=== PATIENT | male | born 1960 | race Asian ===

== ENCOUNTER → 2017-05-02 | Outpatient (CLI) | payer OTHER ==
--- NOTE | 2017-05-02 18:54 | Diagnostic Imaging Report ---
Exams: Head and maxilla facial CTs without IV contrast History: Trauma, fall Comparison studies: None Technique: Axial images were obtained to the vertex and maxillofacial region. Coronal and sagittal images reconstructed from the axial data. Intravenous contrast: None Findings: Scalp: No abnormalities. Bones: No fractures, blastic or lytic lesions. Brain sulci: Mildly prominent. Ventricles: Normal in size and configuration. No hydrocephalus. Parenchyma: No mass, acute hemorrhage or acute or chronic cortical vascular insults. Sellar/suprasellar region: No abnormalities Craniocervical junction: Patent foramen magnum. No Chiari one malformation. Maxillofacial CT: Soft tissues: Right reason traumatic soft tissue hematoma. Bones: No fractures or bony abnormalities. Orbits: Globes: Intact Extra or intraconal abnormalities: None. Paranasal sinuses: Bilateral maxillary sinuses are partially opacified with mucosal thickening, left greater than right. 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 IMPRESSION: Head CT: No acute abnormalities. Maxillofacial CT: 1. Right prezygomatic soft tissue hematoma. 2. No maxillofacial fractures or additional acute abnormalities. Signed by: Dr. Anton Kaiser M.D. on 05/02/2017 6:50 PM
== END ==
LOC: CT 16:50
PROVIDERS: ATTEND Family Medicine
DX: S06.0X0A Concussion without loss of consciousness, initial encounter (principal)
CPT/HCPCS: 70450; 70486